=== PATIENT | female | born 2000 | race Caucasian/White ===

== ENCOUNTER 2022-06-19 17:49 | Emergency (ER) | payer SELFPAY ==
[2022-06-19 19:33] LABS: BLOOD UREA NITROGEN,BUN 13 mg/dL (7.0-18.0); CARBON DIOXIDE,CO2 25.6 mmol/L (21.0-32.0); CHLORIDE,CL 102 mmol/L (98-107); GLUCOSE RANDOM 91 mg/dL (74-106); POTASSIUM,K 3.4 mmol/L (3.5-5.1); SODIUM,NA 138 mmol/L (136-145)
[2022-06-19 19:35] LABS: ESTIMATED GFR 93 mL/min (>60)
[2022-06-19] MEDS ORDERED: Ketorolac 30 MG/ML SDV IVPUSH ONE (19:45)
[2022-06-19] MEDS ORDERED: Ondansetron 4 MG/2 ML SDV IVPUSH ONE (19:45)
[2022-06-19] MEDS ORDERED: Pantoprazole 40 MG in Sodium Chloride 0.9% 10 ML IVPUSH ONE (19:46)
[2022-06-19] MEDS ORDERED: Sodium Chloride 0.9% 1,000 ML IV ONE (19:58)
[2022-06-19] MEDS ORDERED: Iopamidol 755 MG/ML 500 ML Multipack Bottle IVPUSH STA (20:28)
== END 2022-06-19 21:25 | disposition home or self-care (01) ==
LOC: MW.ED 17:49
DX: K29.70 Gastritis, unspecified, without bleeding (principal)
CPT/HCPCS: 36415; 74177; 80053; 81003; 81025; 85025; 96361; 96374; 96375; 99284; C9113; J1885; J2405; J3490; J7030; Q9967

== ENCOUNTER 2022-09-17 20:37 | Emergency (ER) | payer SELFPAY ==
[2022-09-17] MEDS ORDERED: Sulfamethoxazole/Trimethoprim 800-160 MG Tab PO ONE (21:47)
[2022-09-17] MEDS ORDERED: Cefdinir 300 MG Cap PO ONE (21:47)
== END 2022-09-17 22:10 | disposition home or self-care (01) ==
LOC: MW.ED 20:37
DX: L03.213 Periorbital cellulitis (principal)
CPT/HCPCS: 99283; A9270

== ENCOUNTER 2022-11-04 23:14 | Emergency (ER) | payer SELFPAY | END 2022-11-05 00:08 | disposition home or self-care (01) | LOC: MW.ED 23:14 | DX: K04.7 Periapical abscess without sinus (principal) | CPT/HCPCS: 99283 ==

== ENCOUNTER 2023-03-04 18:46 | Emergency (ER) | payer SELFPAY ==
[2023-03-04] MEDS ORDERED: Bupivacaine 0.5% 10 ML SDV INJECT ONE (19:21)
[2023-03-04] MEDS ORDERED: Lidocaine 1% 5 ML VIAL INJECT ONE (19:21)
[2023-03-04 19:42] LABS: APPEARANCE,URINE CLEAR; BILIRUBIN,URINE NEGATIVE (NEGATIVE); COLOR,URINE YELLOW; GLUCOSE,URINE NEGATIVE (NEGATIVE); KETONES,URINE NEGATIVE (NEGATIVE); LEUKOCYTE ESTERASE,URINE NEGATIVE (NEGATIVE); NITRITE,URINE NEGATIVE (NEGATIVE); OCCULT BLOOD,URINE NEGATIVE (NEGATIVE); PROTEIN,URINE NEGATIVE (NEGATIVE); UROBILINOGEN,URINE 0.2 EU/dL (<2.0)
[2023-03-04 20:32] LABS: CANDIDA DNA PROBE NEGATIVE (NEGATIVE); GARDNERELLA DNA PROBE POSITIVE (NEGATIVE); TRICHOMONAS DNA PROBE NEGATIVE (NEGATIVE)
[2023-03-04 21:10] LABS: C. TRACHOMATIS BY PCR NOT DETECTED; N. GONORRHOEAE BY PCR NOT DETECTED
== END 2023-03-04 21:21 | disposition home or self-care (01) ==
LOC: MW.ED 18:46
DX: K08.89 Other specified disorders of teeth and supporting structures (principal); N76.0 Acute vaginitis
CPT/HCPCS: 64400; 81003; 81025; 87480; 87491; 87510; 87591; 87660; 99283; S0020; J3490

== ENCOUNTER 2023-06-02 05:51 | Emergency (ER) | payer SELFPAY ==
[2023-06-02] MEDS: Ketorolac 30 MG/ML SDV IM ONE (06:47)
[2023-06-02] MEDS: Bupivacaine 0.5% 10 ML SDV INJECT ONE (07:32)
[2023-06-02] MEDS: Lidocaine 1% 5 ML VIAL INJECT ONE (07:32)
== END 2023-06-02 08:19 | disposition home or self-care (01) ==
LOC: MW.ED 05:51
DX: K08.89 Other specified disorders of teeth and supporting structures (principal); K02.9 Dental caries, unspecified; F17.210 Nicotine dependence, cigarettes, uncomplicated
CPT/HCPCS: 64400; 81025; 96372; 99283; J0665; J1885; J3490

== ENCOUNTER 2024-01-09 10:55 | Emergency (ER) | payer SELFPAY ==
[2024-01-09] MEDS: Ketorolac 30 MG/ML SDV IVPUSH ONE (11:32)
[2024-01-09] MEDS: Sodium Chloride 0.9% 1,000 ML IV ONE (11:32)
[2024-01-09] MEDS: Sodium Chloride 0.9% 10 ML Syringe FLUSH PRN (11:33)
[2024-01-09] MEDS: Sodium Chloride 0.9% 2.5 ML Syringe FLUSH PRN (11:37)
[2024-01-09 11:41] LABS: BASOPHILS ABSOLUTE AUTO 0.04 K/uL (0.00-0.20); BASOPHILS PERCENT AUTO 0.8 % (0.0-1.0); EOSINOPHILS ABSOLUTE AUTO 0.11 K/uL (0.00-0.45); EOSINOPHILS PERCENT AUTO 2.1 % (0.0-6.0); HEMATOCRIT 37.2 % (37.0-47.0); HEMOGLOBIN 12.6 g/dL (12.0-16.0); IMMATURE GRAN ABSOLUTE AUTO 0.01 K/uL (0.00-0.05); IMMATURE GRAN PERCENT AUTO 0.2 % (0.0-0.4); LYMPHOCYTES ABSOLUTE AUTO 1.58 K/uL (1.00-4.80); LYMPHOCYTES PERCENT AUTO 30.2 % (24.0-44.0); MEAN CORPUSCULAR HEMOGLOBIN 27.5 pg (28.0-32.0); MEAN CORPUSCULAR HGB CONC 33.9 g/dL (32.0-36.0); MEAN CORPUSCULAR VOLUME 81.2 fL (83.0-99.0); MEAN PLATELET VOLUME 9.3 fL (9.4-12.3); MONOCYTES ABSOLUTE AUTO 0.43 K/uL (0.00-0.80); MONOCYTES PERCENT AUTO 8.2 % (0.0-8.0); NEUTROPHILS ABSOLUTE AUTO 3.07 K/uL (1.80-7.70); NEUTROPHILS PERCENT AUTO 58.5 % (41.0-71.0); PLATELET COUNT,PLT 295 K/uL (150-400); RED BLOOD CELL COUNT 4.58 M/uL (4.10-5.30); WHITE BLOOD CELL COUNT,WBC 5.24 K/uL (3.9-11.3)
[2024-01-09 11:48] LABS: BILIRUBIN,URINE NEGATIVE (NEGATIVE); GLUCOSE,URINE NEGATIVE (NEGATIVE); KETONES,URINE TRACE mg/dL (NEGATIVE); LEUKOCYTE ESTERASE,URINE NEGATIVE (NEGATIVE); NITRITE,URINE NEGATIVE (NEGATIVE); OCCULT BLOOD,URINE LARGE (NEGATIVE); PROTEIN,URINE 100 mg/dL (NEGATIVE)
[2024-01-09 11:56] LABS: APPEARANCE,URINE CLOUDY
[2024-01-09 11:57] LABS: COLOR,URINE RED
[2024-01-09 11:58] LABS: BACTERIA,URINE FEW (NEGATIVE); EPITHELIAL CELLS,URINE RARE (NONE-FEW); RBC,URINE TOO NUMEROUS TO CT (0-2/HPF); WBC,URINE 0-2 (0-5/HPF)
[2024-01-09 12:03] LABS: A/G RATIO 0.9 (0.9-1.6); ALBUMIN 3.8 g/dL (3.4-5.0); BILIRUBIN TOTAL 0.5 mg/dL (0.2-1.0); CALCIUM 9.4 mg/dL (8.5-10.1); CARBON DIOXIDE,CO2 25.7 mmol/L (21.0-32.0); CREATININE 0.9 mg/dL (0.6-1.0); EST CRCL DRUG DOSING (CG) 83.95 mL/min; POTASSIUM,K 3.7 mmol/L (3.5-5.1); PROTEIN TOTAL,TP 7.9 g/dL (6.4-8.2)
== END 2024-01-09 13:33 | disposition home or self-care (01) ==
LOC: MW.ED 10:55
DX: N13.2 Hydronephrosis with renal and ureteral calculous obstruction (principal); F17.210 Nicotine dependence, cigarettes, uncomplicated
CPT/HCPCS: 36415; 74176; 80053; 81001; 83690; 84703; 85025; 96361; 96374; 99284; J1885; J3490; J7030